=== PATIENT | female | born 1940 | race Caucasian/White ===

== ENCOUNTER → 2016-06-12 | Outpatient (CLI) | payer MEDICARE, BC ==
[~2016-06-12] MED LIST: CALCIUM500 MG PO; GLUCOPHAGE XR750 MG PO; GLUCOSAMINE1000 MG PO; KEFLEX-DPS500 MG PO; KRILL OIL 1,001 EAC1 PO; NORCO 5-325 TA1 EACH PO; OCUVITE SOFTGE1 EACH PO; PROTONIX40 MG PO; SLO NIACIN DPS500 MG PO; SYNTHROID100 MCG PO; VITAMIN D1000 UNI1 PO
== END | disposition home or self-care (01) ==
LOC: RAD.S 08:40
DX: R92.8 Other abnormal and inconclusive findings on diagnostic imaging of breast (principal); N63 Unspecified lump in breast; Z98.890 Other specified postprocedural states

== ENCOUNTER → 2016-06-24 | Outpatient (CLI) | payer MEDICARE, BC | END | disposition home or self-care (01) | LOC: RAD.S 08:37 | DX: R59.0 Localized enlarged lymph nodes (principal); C50.312 Malignant neoplasm of lower-inner quadrant of left female breast ==

== ENCOUNTER → 2016-11-12 | Outpatient (CLI) | payer MEDICARE, BC | END | disposition home or self-care (01) | LOC: PTH.S 10:35 | DX: Z01.818 Encounter for other preprocedural examination (principal); E11.9 Type 2 diabetes mellitus without complications; R94.31 Abnormal electrocardiogram [ECG] [EKG] ==